=== PATIENT | female | born 1995 | race Caucasian/White ===

== ENCOUNTER 2018-12-18 08:52 | Emergency (ER) | payer OTHER ==
[~2018-12-18] VITALS: Ht 172.7 cm; Wt 64.9 kg
[2018-12-18] MEDS ORDERED: LIDO700A20 TOP (09:56)
== END 2018-12-18 10:06 | disposition home or self-care (01) ==
LOC: ER 08:52
DX: O20.8 Other hemorrhage in early pregnancy (principal); M54.5 Low back pain; Z3A.08 8 weeks gestation of pregnancy
CPT/HCPCS: 76801; 99284-25; A9270

== ENCOUNTER → 2019-06-28 | Outpatient (CLI) | payer OTHER ==
[~2019-06-28] MED LIST: LIDO700A20 TOP
== END ==
LOC: LAB 18:46 → LAB SHORT 18:46
DX: Z34.03 Encounter for supervision of normal first pregnancy, third trimester (principal)
CPT/HCPCS: 87081; 87653

== ENCOUNTER 2019-08-03 19:50 | Inpatient (IN) | payer OTHER ==
[~2019-08-03] VITALS: Ht 172.7 cm; Wt 92.3 kg
[2019-08-03] MEDS ORDERED: PRENATAL TABLE1 EAC2 PO (20:07)
[2019-08-03 21:04] LABS: BASOPHILS ABSOLUTE AUTO 0.03 K/mm3 (0.00-0.23); BASOPHILS PERCENT AUTO 0 % (0-2); EOSINOPHILS ABSOLUTE AUTO 0.11 K/mm3 (0.00-0.68); EOSINOPHILS PERCENT AUTO 1 % (0-6); Hematocrit 39.2 % (33.0-51.0); Hemoglobin 12.9 g/dL (11.5-16.0); IMMATURE GRAN ABSOLUTE AUTO 0.07 K/mm3 (0.00-0.10); IMMATURE GRAN PERCENT AUTO 1 % (0-1); LYMPHOCYTES ABSOLUTE AUTO 1.58 K/mm3 (0.84-5.20); LYMPHOCYTES PERCENT AUTO 14 % (21-46); MONOCYTES ABSOLUTE AUTO 0.67 K/mm3 (0.16-1.47); MONOCYTES PERCENT AUTO 6 % (4-13); Mean Corpuscular HGB 29.9 pg (26.0-34.0); Mean Corpuscular HGB Conc 32.9 g/dL (31.5-36.5); Mean Corpuscular Volume 91 fL (80-100); Mean Platelet Volume 9.6 fL (9.1-12.4); NEUTROPHILS PERCENT AUTO 78 % (41-73); Platelet Count 199 K/mm3 (150-400); RDW Coefficient Variation 12.7 % (11.7-14.2); Red Blood Cell Count 4.32 M/mm3 (3.80-5.20); White Blood Cell Count 11.06 K/mm3 (4.00-11.30)
[2019-08-05 05:27] LABS: Hematocrit 33.7 % (33.0-51.0); Hemoglobin 11.2 g/dL (11.5-16.0); Mean Corpuscular HGB 30.4 pg (26.0-34.0); Mean Corpuscular HGB Conc 33.2 g/dL (31.5-36.5); Mean Corpuscular Volume 92 fL (80-100); Mean Platelet Volume 9.5 fL (9.1-12.4); Platelet Count 171 K/mm3 (150-400); RDW Coefficient Variation 12.8 % (11.7-14.2); RDW Standard Deviation 42.5 fL (35.1-46.3); Red Blood Cell Count 3.68 M/mm3 (3.80-5.20); White Blood Cell Count 16.28 K/mm3 (4.00-11.30)
[2019-08-05] MEDS ORDERED: IBUP800 PO (13:32)
--- NOTE | 2019-08-05 18:56 | NUR ---
dishcarge instructions given to mother, denies any questions at this time. ppfu 08/09/19 at 1300, will return then, 2 week ppfu with nereyda roman made already. pt vital all wnl. pt going to boarder status and remaining with for wt and jaundice issues.
--- NOTE | 2019-08-06 14:22 | NUR ---
RN ROUNDED TO HELP W/ . NB AT HIGH WEIGHT LOSS AND JAUNDICE LEVELS. PT INSTRUCTED TO SUPPLEMENT W/ AT LEAST 10-15CC EBM OF FORMULA W/ EACH FEED. INSTRUCT/DEMO TUBE AND SYRINGE USE, WIDENING LATCH, CORRECT POSITIONING, NIPPLE SHAPE AFTER FEEDS, SHIELD USE AND WEANING. INSTRUCT/REVIEWED BOOKLET AND BROCHURE ON WANT TO EXPECT DURING THE FIRST WEEK OF LIFE W/ AND FEEDING PATTERN CHANGES. PT AND SO VERBALIZED UNDERSTANDING, BOTH DENY ANY FURTHER QUESTIONS OR CONCERNS.
== END 2019-08-05 19:22 | disposition home or self-care (01) | DRG 806 ==
LOC: BC 19:50 → OBS 19:50 → BC 20:08
PROVIDERS: ADMIT Advanced Practice Midwife
PROC: 3E0P7VZ Introduction of Hormone into Female Reproductive, Via Natural or Artificial Opening (ICD-10-PCS; 2019-08-03)
PROC: 10E0XZZ Delivery of Products of Conception, External Approach (ICD-10-PCS; principal; 2019-08-04)
PROC: 10907ZC Drainage of Amniotic Fluid, Therapeutic from Products of Conception, Via Natural or Artificial Opening (ICD-10-PCS; 2019-08-04)
PROC: 3E033VJ Introduction of Other Hormone into Peripheral Vein, Percutaneous Approach (ICD-10-PCS; 2019-08-04)
PROC: 0UQG7ZZ Repair Vagina, Via Natural or Artificial Opening (ICD-10-PCS; 2019-08-04)
PROC: 10H07YZ Insertion of Other Device into Products of Conception, Via Natural or Artificial Opening (ICD-10-PCS; 2019-08-04)
PROC: 00HU33Z Insertion of Infusion Device into Spinal Canal, Percutaneous Approach (ICD-10-PCS; 2019-08-04)
PROC: 3E0R3BZ Introduction of Anesthetic Agent into Spinal Canal, Percutaneous Approach (ICD-10-PCS; 2019-08-04)
DX: O48.0 Post-term pregnancy (principal); O71.4 Obstetric high vaginal laceration alone; Z37.0 Single live birth; Z3A.41 41 weeks gestation of pregnancy; O76 Abnormality in fetal heart rate and rhythm complicating labor and delivery
CPT/HCPCS: 36415; 51702; 85025; 85027; 86850; 86900; 86901; J1885; J2001; J2210; J2590; J3010; J7120; Q0163

== ENCOUNTER → 2019-11-19 | Outpatient (CLI) | payer OTHER ==
[~2019-11-19] MED LIST changes: +IBUP800 PO; +PRENATAL TABLE1 EAC2 PO
[2019-11-20 06:53] LABS: Candida species (DNA Probe) Negative (NEGATIVE); G. vaginalis (DNA Probe) Negative (NEGATIVE); T. vaginalis (DNA Probe) Negative (NEGATIVE)
== END | disposition home or self-care (01) ==
LOC: LAB 19:21 → LAB SHORT 19:21
PROVIDERS: Advanced Practice Midwife
DX: Z01.419 Encounter for gynecological examination (general) (routine) without abnormal findings (principal); N76.0 Acute vaginitis
CPT/HCPCS: 87480; 87510; 87660; G0123

== ENCOUNTER 2020-04-14 22:08 | Emergency (ER) | payer OTHER ==
[~2020-04-14] VITALS: Ht 172.7 cm; Wt 77.6 kg
[2020-04-15] MEDS ORDERED: SERT25 PO (02:49)
[2020-04-15] MEDS ORDERED: IBU600 MG PO (02:57)
[2020-04-15] MEDS ORDERED: LIDO700A20 TOP (02:57)
== END 2020-04-15 03:24 | disposition home or self-care (01) ==
LOC: ER 22:08
DX: S20.214A Contusion of middle front wall of thorax, initial encounter (principal); Z87.891 Personal history of nicotine dependence; W01.198A Fall on same level from slipping, tripping and stumbling with subsequent striking against other object, initial encounter
CPT/HCPCS: 71046; 93005; 93010; 99283-25; A9270

== ENCOUNTER → 2020-10-26 | Outpatient (CLI) | payer OTHER ==
[~2020-10-26] MED LIST changes: +IBU600 MG PO; +SERT25 PO
[2020-10-28 06:09] LABS: CHLAMYDIA TRACHOMATIS, NAA Negative (Negative)
== END | disposition home or self-care (01) ==
LOC: LAB 16:49 → LAB SHORT 16:49
PROVIDERS: Family Medicine
DX: Z11.3 Encounter for screening for infections with a predominantly sexual mode of transmission (principal)
CPT/HCPCS: 87491; 87591

== ENCOUNTER → 2022-02-06 | Outpatient (CLI) | payer OTHER | END | disposition home or self-care (01) | LOC: LAB SHORT 16:58 → LAB 16:58 | DX: O09.93 Supervision of high risk pregnancy, unspecified, third trimester (principal) | CPT/HCPCS: 87081; 87150 ==

== ENCOUNTER → 2022-03-01 | Outpatient (CLI) | payer OTHER ==
[~2022-03-01] MED LIST changes: +FAMO20 PO
[2022-03-01 20:28] LABS: BASOPHILS ABSOLUTE AUTO 0.02 K/mm3 (0.00-0.23); BASOPHILS PERCENT AUTO 0 % (0-2); EOSINOPHILS ABSOLUTE AUTO 0.14 K/mm3 (0.00-0.68); EOSINOPHILS PERCENT AUTO 2 % (0-6); Hematocrit 41.3 % (33.0-51.0); Hemoglobin 14.1 g/dL (11.5-16.0); IMMATURE GRAN ABSOLUTE AUTO 0.06 K/mm3 (0.00-0.10); IMMATURE GRAN PERCENT AUTO 1 % (0-1); LYMPHOCYTES ABSOLUTE AUTO 1.52 K/mm3 (0.84-5.20); LYMPHOCYTES PERCENT AUTO 16 % (21-46); MONOCYTES ABSOLUTE AUTO 0.74 K/mm3 (0.16-1.47); MONOCYTES PERCENT AUTO 8 % (4-13); Mean Corpuscular HGB 30.7 pg (26.0-34.0); Mean Corpuscular HGB Conc 34.1 g/dL (31.5-36.5); Mean Corpuscular Volume 90 fL (80-100); Mean Platelet Volume 10.9 fL (9.1-12.4); NEUTROPHILS ABSOLUTE AUTO 6.93 K/mm3 (1.96-9.15); NEUTROPHILS PERCENT AUTO 74 % (41-73); Platelet Count 192 K/mm3 (150-400); RDW Coefficient Variation 12.8 % (11.7-14.2); RDW Standard Deviation 41.5 fL (35.1-46.3); White Blood Cell Count 9.41 K/mm3 (4.00-11.30)
[2022-03-01 21:29] LABS: Protein, Urine Random <5.0 mg/dL (0.0-11.9); Protein/Creat Ratio, Ur Random Unable to Calculate
[2022-03-01 22:06] LABS: Albumin, Blood 3.2 g/dL (3.4-5.0); Albumin/Globulin Ratio 0.9 (0.8-1.8); Bilirubin, Total 0.3 mg/dL (0.1-1.0); Bun/Creatinine Ratio 13.9 (12.0-20.0); Creatinine, Blood 0.65 mg/dL (0.40-1.00); Globulin, Blood 3.5 g/dL (2.2-4.0); Potassium, Blood 3.9 mmol/L (3.5-5.5); Total Protein, Blood 6.7 g/dL (6.4-8.2)
== END | disposition home or self-care (01) ==
LOC: LAB SHORT 16:00
PROVIDERS: Advanced Practice Midwife
DX: O13.9 Gestational [pregnancy-induced] hypertension without significant proteinuria, unspecified trimester (principal)
CPT/HCPCS: 80053; 82570; 84156; 85025

== ENCOUNTER 2022-03-05 04:57 | Inpatient (IN) | payer OTHER ==
[~2022-03-05] VITALS: Ht 170.2 cm; Wt 90.9 kg
[~2022-03-05 04:57] MED LIST changes: -FAMO20 PO
[2022-03-05] MEDS ORDERED: PRENATAL TABLE1 EAC2 PO (05:26)
[2022-03-05] MEDS ORDERED: SERT25 PO (05:27)
[2022-03-05] MEDS ORDERED: FAMO20 PO (05:28)
[2022-03-05 05:36] LABS: BASOPHILS ABSOLUTE AUTO 0.03 K/mm3 (0.00-0.23); BASOPHILS PERCENT AUTO 0 % (0-2); EOSINOPHILS ABSOLUTE AUTO 0.16 K/mm3 (0.00-0.68); EOSINOPHILS PERCENT AUTO 2 % (0-6); Hematocrit 38.3 % (33.0-51.0); Hemoglobin 13.2 g/dL (11.5-16.0); IMMATURE GRAN ABSOLUTE AUTO 0.04 K/mm3 (0.00-0.10); IMMATURE GRAN PERCENT AUTO 0 % (0-1); LYMPHOCYTES ABSOLUTE AUTO 2.15 K/mm3 (0.84-5.20); LYMPHOCYTES PERCENT AUTO 23 % (21-46); MONOCYTES ABSOLUTE AUTO 0.84 K/mm3 (0.16-1.47); MONOCYTES PERCENT AUTO 9 % (4-13); Mean Corpuscular HGB 30.3 pg (26.0-34.0); Mean Corpuscular HGB Conc 34.5 g/dL (31.5-36.5); Mean Corpuscular Volume 88 fL (80-100); Mean Platelet Volume 10.4 fL (9.1-12.4); NEUTROPHILS ABSOLUTE AUTO 6.25 K/mm3 (1.96-9.15); NEUTROPHILS PERCENT AUTO 66 % (41-73); Platelet Count 173 K/mm3 (150-400); RDW Coefficient Variation 12.6 % (11.7-14.2); RDW Standard Deviation 40.4 fL (35.1-46.3); Red Blood Cell Count 4.35 M/mm3 (3.80-5.20); White Blood Cell Count 9.47 K/mm3 (4.00-11.30)
== END 2022-03-05 19:45 | disposition home or self-care (01) | DRG 833 ==
LOC: OBS 04:57 → BC 04:59 → OBS 05:04 → BC 05:06
PROVIDERS: ADMIT Advanced Practice Midwife
PROC: 3E033VJ Introduction of Other Hormone into Peripheral Vein, Percutaneous Approach (ICD-10-PCS; principal; 2022-03-05)
DX: O13.3 Gestational [pregnancy-induced] hypertension without significant proteinuria, third trimester (principal); O48.0 Post-term pregnancy; O99.820 Streptococcus B carrier state complicating pregnancy; O99.343 Other mental disorders complicating pregnancy, third trimester; F41.8 Other specified anxiety disorders; Z3A.40 40 weeks gestation of pregnancy; Z87.891 Personal history of nicotine dependence; Z79.899 Other long term (current) drug therapy
CPT/HCPCS: 36415; 85025; 86850; 86900; 86901; A9270; J0290; J2590; J7120

== ENCOUNTER 2022-03-05 23:17 | Inpatient (IN) | payer OTHER ==
[~2022-03-05] VITALS: Ht 170.2 cm; Wt 90.9 kg
[~2022-03-05 23:17] MED LIST changes: +FAMO20 PO
[2022-03-05 23:48] LABS: BASOPHILS ABSOLUTE AUTO 0.03 K/mm3 (0.00-0.23); BASOPHILS PERCENT AUTO 0 % (0-2); EOSINOPHILS ABSOLUTE AUTO 0.16 K/mm3 (0.00-0.68); EOSINOPHILS PERCENT AUTO 2 % (0-6); Hematocrit 35.6 % (33.0-51.0); Hemoglobin 12.4 g/dL (11.5-16.0); IMMATURE GRAN ABSOLUTE AUTO 0.04 K/mm3 (0.00-0.10); IMMATURE GRAN PERCENT AUTO 1 % (0-1); LYMPHOCYTES PERCENT AUTO 22 % (21-46); MONOCYTES ABSOLUTE AUTO 0.86 K/mm3 (0.16-1.47); MONOCYTES PERCENT AUTO 10 % (4-13); Mean Corpuscular HGB 30.8 pg (26.0-34.0); Mean Corpuscular HGB Conc 34.8 g/dL (31.5-36.5); Mean Corpuscular Volume 89 fL (80-100); Mean Platelet Volume 10.4 fL (9.1-12.4); NEUTROPHILS ABSOLUTE AUTO 5.69 K/mm3 (1.96-9.15); NEUTROPHILS PERCENT AUTO 66 % (41-73); Platelet Count 152 K/mm3 (150-400); RDW Coefficient Variation 12.5 % (11.7-14.2); RDW Standard Deviation 40.9 fL (35.1-46.3); Red Blood Cell Count 4.02 M/mm3 (3.80-5.20); White Blood Cell Count 8.68 K/mm3 (4.00-11.30)
[2022-03-07] MEDS ORDERED: IBUP800 PO (07:24)
--- NOTE | 2022-03-07 08:40 | NUR ---
PT LOWER ABD IS SORE WHERE HER 2 EPIDURAL PROCEDURES WERE DONE. TENDER TO PALPATION, BUT NO SWELLING, NO BRUISING, NO BLEEDING AROUND SITE, PT HAS HEAT AND ICE, REPORTS ICE FEELS BETTER THAN HEAT. PT AWARE DR DANIEL WANTS HER TO GET UP AND WALK AROUND AND IF SHE HAS NO HEADACHE AFTER THAT THEN AT NOON WILL BE ABLE TO REMOVE THE EPIDURAL CATH.
--- NOTE | 2022-03-07 10:43 | NUR ---
PT HAS BEEN UP WALKING IN THE ROOM, ENCOURAGED HER TO WALK IN THE [place] A FEW TIMES LIKE DR DANIEL REQUESTED, SHE IS PLANNING TO GET UP SOON AND PUSH BABY IN HALLS, SHE IS AWARE HE NEEDS TO STAY IN THE CRIB AND TO STAY 5-6 FEET AWAY FROM EXITS OR DOORS ALARM.
--- NOTE | 2022-03-07 12:27 | NUR ---
OK TO REMOVE EPIDURAL CATH PER DR DANIEL THAT CAME AND ASSESS THE PT,
--- NOTE | 2022-03-07 12:33 | NUR ---
epidural cath removed, tip intact, sh cnm at bedside reports going to start flexeril, aware that pt lower back is sensitive to touch
[2022-03-07] MEDS ORDERED: CYCL10 PO (14:29)
--- NOTE | 2022-03-07 16:10 | NUR ---
DC HOME WITH SO AND BABY, DENIES ANY QUESTIONS, LOWER BACK IF FEELING A LITTLE BETTER, PT TO CONTINUE WITH MOTRIN, TYLENOL, HEAT, ICE AND FLEXERIL NEEDED, INSTRUCTIONS TO CALL [facility] IF WORSENS. SCRITPS SENT OVER ELECTRONICALLY BY LUANNE FOR PT TO FRONT DESK ADMINISTRATOR AT PHARMACY. PT ENCOURAGED TO CALL WITH QUESTIONS
== END 2022-03-07 16:10 | disposition home or self-care (01) | DRG 807 ==
LOC: OBS 23:17 → BC 23:18 → OBS 23:27 → BC 23:28
PROVIDERS: ADMIT Obstetrics & Gynecology
PROC: 10E0XZZ Delivery of Products of Conception, External Approach (ICD-10-PCS; principal; 2022-03-06)
PROC: 3E0R3BZ Introduction of Anesthetic Agent into Spinal Canal, Percutaneous Approach (ICD-10-PCS; 2022-03-06)
PROC: 00HU33Z Insertion of Infusion Device into Spinal Canal, Percutaneous Approach (ICD-10-PCS; 2022-03-06)
DX: O13.4 Gestational [pregnancy-induced] hypertension without significant proteinuria, complicating childbirth (principal); Z37.0 Single live birth; O48.0 Post-term pregnancy; Z3A.40 40 weeks gestation of pregnancy; O99.824 Streptococcus B carrier state complicating childbirth; O77.0 Labor and delivery complicated by meconium in amniotic fluid; O99.344 Other mental disorders complicating childbirth; F41.8 Other specified anxiety disorders; Z87.828 Personal history of other (healed) physical injury and trauma; Z87.891 Personal history of nicotine dependence; Z79.899 Other long term (current) drug therapy
CPT/HCPCS: 36415; 51702; 85025; 86850; 86900; 86901; A9270; J0290; J2370; J2405; J2590; J7120